=== PATIENT | female | born 1970 | race African-American/Black ===

== ENCOUNTER 2019-08-07 11:02 | Emergency (ER) | payer OTHER ==
[2019-08-07 11:26] VITALS: BP 147/53; PULSE 74; TEMP 98; BMI 25.7
[2019-08-07] MEDS ORDERED: IBUPROFEN 600 MG TABLET (FP) PO ONE ×2 (11:52→12:28)
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
== END 2019-08-07 12:52 | disposition home or self-care (01) ==
LOC: JERFT 11:02
DX: S50.12XA Contusion of left forearm, initial encounter (principal); Y04.2XXA Assault by strike against or bumped into by another person, initial encounter; Y93.89 Activity, other specified; Y92.410 Unspecified street and highway as the place of occurrence of the external cause
CPT/HCPCS: 73090-TC-LT-FY; 99281-25

== ENCOUNTER 2022-07-14 04:43 | Day surgery (SDC) | payer OTHER ==
[2022-07-12 16:38] VITALS: BMI 30.6
[2022-07-14 10:29] VITALS: TEMP 97.8
[2022-07-14 12:15] VITALS: BP 132/69; PULSE 63; RESP 16
== END 2022-07-14 10:58 | disposition home or self-care (01) ==
LOC: JASU-ENDO 04:43
PROVIDERS: ATTEND Internal Medicine Gastroenterology
PROC: 0DBN8ZX Excision of Sigmoid Colon, Via Natural or Artificial Opening Endoscopic, Diagnostic (ICD-10-PCS; 2022-07-14)
PROC: 0DBK8ZX Excision of Ascending Colon, Via Natural or Artificial Opening Endoscopic, Diagnostic (ICD-10-PCS; principal; 2022-07-14 09:30)
DX: Z12.11 Encounter for screening for malignant neoplasm of colon (principal); D12.2 Benign neoplasm of ascending colon; K63.5 Polyp of colon; K64.8 Other hemorrhoids; Z86.010 Personal history of colon polyps
CPT/HCPCS: 81025; 88305-TC